=== PATIENT | male | born 1945 | race Caucasian/White ===

== ENCOUNTER 2017-03-12 11:20 | Day surgery (SDC) | payer MEDICARE, BC ==
[~2017-03-12] VITALS: Ht 182.9 cm; Wt 120.7 kg
[~2017-03-12 11:20] MED LIST: ACET500 PO; ALBU90OI INH; ALLEGRA ALLERG180 MG PO; AMLOATOR; AMLOD-VALSA-HC1 EAC4 PO; AMLODIPINE-VAL1 EAC3 PO; ASMANEX110 MC1 INH; ASPI81CH PO; Aspir 8181 MG; Aspir 8181 MG PO; Aspirin EC81 MG PO; BENZ100A PO; CALCA500CH PO; COQ1050 MG PO; CYCL10 PO; Cialis20 MG PO; Curcumin1 GM; DIOVAN; DOXA2; DOXA2 PO; ESCI10 PO; EXFORGE; EZET10 PO; EZET10-20; FEXO180; FEXO60 PO; FEXPSEER PO; FISH1000 PO; HYDACE10B; HYDACE5 PO; HYDCHL25; HYDCHL25 PO; HYDRA25 PO; HYDRO EYE PO; IBUP800 PO; METPRE4DP PO; MOME220I; MOME220I INH; NAPR500; NAPR500 PO; OXYACE5T PO; PANT20 PO; PANT40 PO; PRAV20 PO; PROCODE120 PO; ROXICODONE5 MG PO; SIMV80; SIMV80 PO; TADA10TA; TADA10TA PO; TURMERIC500 MG; TURMERIC500 MG PO; UBID10; UBID100 PO; VALS80
== END 2017-03-12 13:53 | disposition home or self-care (01) ==
LOC: ORSCSDS 11:20
PROVIDERS: Internal Medicine Gastroenterology
PROC: 0DB98ZX Excision of Duodenum, Via Natural or Artificial Opening Endoscopic, Diagnostic (ICD-10-PCS; principal; 2017-03-12 12:30)
PROC: 0DB58ZX Excision of Esophagus, Via Natural or Artificial Opening Endoscopic, Diagnostic (ICD-10-PCS; principal; 2017-03-12 12:30)
PROC: 0DBK8ZX Excision of Ascending Colon, Via Natural or Artificial Opening Endoscopic, Diagnostic (ICD-10-PCS; principal; 2017-03-12 12:30)
PROC: 0DB68ZX Excision of Stomach, Via Natural or Artificial Opening Endoscopic, Diagnostic (ICD-10-PCS; principal; 2017-03-12 12:30)
PROC: 0DBN8ZX Excision of Sigmoid Colon, Via Natural or Artificial Opening Endoscopic, Diagnostic (ICD-10-PCS; principal; 2017-03-12 12:30)
PROC: 0DBE8ZX Excision of Large Intestine, Via Natural or Artificial Opening Endoscopic, Diagnostic (ICD-10-PCS; principal; 2017-03-12 12:30)
DX: K21.9 Gastro-esophageal reflux disease without esophagitis (principal); K29.80 Duodenitis without bleeding; R19.7 Diarrhea, unspecified; D12.5 Benign neoplasm of sigmoid colon; D12.2 Benign neoplasm of ascending colon; K57.30 Diverticulosis of large intestine without perforation or abscess without bleeding; K64.8 Other hemorrhoids; I10 Essential (primary) hypertension; J45.909 Unspecified asthma, uncomplicated; E66.9 Obesity, unspecified; Z68.36 Body mass index [BMI] 36.0-36.9, adult; E78.5 Hyperlipidemia, unspecified; I25.10 Atherosclerotic heart disease of native coronary artery without angina pectoris; G47.33 Obstructive sleep apnea (adult) (pediatric); Z79.82 Long term (current) use of aspirin; Z79.899 Other long term (current) drug therapy; Z87.891 Personal history of nicotine dependence
CPT/HCPCS: 88305; 88342; J2250; J7120

== ENCOUNTER 2018-07-23 05:11 | Emergency (ER) | payer MEDICARE, BC ==
[~2018-07-23] VITALS: Ht 182.9 cm; Wt 122.5 kg
[2018-07-23] MEDS ORDERED: Percocet 5-3251 EACH PO (07:20)
== END 2018-07-23 07:27 | disposition home or self-care (01) ==
LOC: ER 05:11
DX: M62.838 Other muscle spasm (principal); I10 Essential (primary) hypertension; Z87.891 Personal history of nicotine dependence; Z79.899 Other long term (current) drug therapy
CPT/HCPCS: 72040; 96372; 99283-25; J1885

== ENCOUNTER 2019-05-19 09:17 | Observation (INO) | payer MEDICARE ==
[~2019-05-19 09:17] MED LIST changes: +ATOR20 PO; -Curcumin1 GM; -PANT20 PO; -PRAV20 PO; +Percocet 5-3251 EACH PO; +TURMERIC PO
[2019-05-19 10:26] LABS: BASOPHILS ABSOLUTE AUTO 0.05 K/mm3 (0.00-0.23); BASOPHILS PERCENT AUTO 0 % (0-2); EOSINOPHILS ABSOLUTE AUTO 0.32 K/mm3 (0.00-0.68); EOSINOPHILS PERCENT AUTO 3 % (0-6); Hematocrit 47.8 % (37.0-53.0); Hemoglobin 15.4 g/dL (13.5-17.5); IMMATURE GRAN ABSOLUTE AUTO 0.04 K/mm3 (0.00-0.10); IMMATURE GRAN PERCENT AUTO 0 % (0-1); LYMPHOCYTES ABSOLUTE AUTO 2.07 K/mm3 (0.84-5.20); LYMPHOCYTES PERCENT AUTO 16 % (21-46); MONOCYTES ABSOLUTE AUTO 1.28 K/mm3 (0.16-1.47); MONOCYTES PERCENT AUTO 10 % (4-13); Mean Corpuscular HGB 28.7 pg (26.0-34.0); Mean Corpuscular HGB Conc 32.2 g/dL (31.5-36.5); Mean Corpuscular Volume 89 fL (80-100); Mean Platelet Volume 11.4 fL (9.1-12.4); NEUTROPHILS PERCENT AUTO 71 % (41-73); Platelet Count 191 K/mm3 (150-400); Red Blood Cell Count 5.37 M/mm3 (4.30-5.90); White Blood Cell Count 12.86 K/mm3 (4.00-11.30)
[2019-05-19 10:54] LABS: Alanine Aminotransfer (ALT/SGP 30 U/L (12-78); Albumin, Blood 3.5 g/dL (3.4-5.0); Albumin/Globulin Ratio 1.1 (0.8-1.8); Alk Phos 75 U/L (50-136); Anion Gap 5 mmol/L (6-16); Aspartate Aminotrans (AST/SGOT 19 U/L (12-37); Bilirubin, Total 1.5 mg/dL (0.1-1.0); Blood Urea Nitrogen 15 mg/dL (8-24); CO2, Blood 26 mmol/L (21-32); Calcium, Blood 9.1 mg/dL (8.5-10.1); Chloride, Blood 112 mmol/L (98-108); Creatinine, Blood 0.94 mg/dL (0.60-1.20); Globulin, Blood 3.3 g/dL (2.2-4.0); Glomerular Filtration Rate >60 (60-); Glucose, Blood 114 mg/dL (70-99); Sodium, Blood 143 mmol/L (136-145); Total Protein, Blood 6.8 g/dL (6.4-8.2); Troponin I 0.055 ng/mL (0.000-0.040)
[2019-05-19 18:23] LABS: Adenovirus Not Detected (NOT DETECT); Bordetella pertussis Not Detected (NOT DETECT); Chlamydophila pneumoniae Not Detected (NOT DETECT); Coronavirus 229E Not Detected (NOT DETECT); Coronavirus HKU1 Not Detected (NOT DETECT); Coronavirus NL63 Not Detected (NOT DETECT); Coronavirus OC43 Not Detected (NOT DETECT); Human Metapneumovirus Not Detected (NOT DETECT); Human Rhinovirus/Enterovirus Not Detected (NOT DETECT); Influenza A/2009-H1 Not Detected (NOT DETECT); Influenza A/H1 Not Detected (NOT DETECT); Influenza A/H3 Not Detected (NOT DETECT); Influenza A/No Subtype Not Detected (NOT DETECT); Influenza B Not Detected (NOT DETECT); Mycoplasma pneumoniae Not Detected (NOT DETECT); Parainfluenza Virus 1 Not Detected (NOT DETECT); Parainfluenza Virus 2 Not Detected (NOT DETECT); Parainfluenza Virus 3 Not Detected (NOT DETECT); Parainfluenza Virus 4 Not Detected (NOT DETECT); Respiratory Syncytial Virus Not Detected (NOT DETECT)
[2019-05-20] MEDS ORDERED: PROAIR RESPICL90 MCG INH (16:13)
[2019-05-20] MEDS ORDERED: GUAI600T33 PO (16:14)
[2019-05-20] MEDS ORDERED: LEVFLO500 PO (16:15)
[2019-05-20] MEDS ORDERED: Florastor250 MG PO (16:15)
[2019-05-20] MEDS ORDERED: FLUTICASONE-SA1 EAC2 INH (16:16)
[2019-05-20] MEDS ORDERED: Prednisone10 MG PO (16:17)
== END 2019-05-20 16:58 | disposition home or self-care (01) ==
PROVIDERS: Emergency Medicine; Hospitalist
DX: J45.901 Unspecified asthma with (acute) exacerbation (principal); J18.8 Other pneumonia, unspecified organism; R79.89 Other specified abnormal findings of blood chemistry; I25.10 Atherosclerotic heart disease of native coronary artery without angina pectoris; I25.5 Ischemic cardiomyopathy; I10 Essential (primary) hypertension; G47.33 Obstructive sleep apnea (adult) (pediatric); K21.9 Gastro-esophageal reflux disease without esophagitis; E78.5 Hyperlipidemia, unspecified; R73.03 Prediabetes; E66.9 Obesity, unspecified; H91.90 Unspecified hearing loss, unspecified ear; N40.0 Benign prostatic hyperplasia without lower urinary tract symptoms; Z88.1 Allergy status to other antibiotic agents; Z95.1 Presence of aortocoronary bypass graft; Z99.89 Dependence on other enabling machines and devices; Z87.891 Personal history of nicotine dependence; Z88.8 Allergy status to other drugs, medicaments and biological substances; Z79.82 Long term (current) use of aspirin; Z79.899 Other long term (current) drug therapy; E78.00 Pure hypercholesterolemia, unspecified; Z68.36 Body mass index [BMI] 36.0-36.9, adult; Z20.828 Contact with and (suspected) exposure to other viral communicable diseases

== ENCOUNTER 2020-01-20 16:08 | Emergency (ER) | payer OTHER, MEDICARE, BC ==
[~2020-01-20] VITALS: Ht 182.9 cm; Wt 117.9 kg
[~2020-01-20 16:08] MED LIST changes: +FLUTICASONE-SA1 EAC2 INH; +Florastor250 MG PO; +GUAI600T33 PO; +LEVFLO500 PO; +PROAIR RESPICL90 MCG INH; +Prednisone10 MG PO
== END 2020-01-20 17:41 | disposition home or self-care (01) ==
LOC: ER 16:08
DX: M79.642 Pain in left hand (principal); I10 Essential (primary) hypertension; J45.909 Unspecified asthma, uncomplicated; Z88.8 Allergy status to other drugs, medicaments and biological substances; Z88.1 Allergy status to other antibiotic agents; Z79.899 Other long term (current) drug therapy; Z79.82 Long term (current) use of aspirin; Z95.1 Presence of aortocoronary bypass graft; V49.40XA Driver injured in collision with unspecified motor vehicles in traffic accident, initial encounter; Y92.410 Unspecified street and highway as the place of occurrence of the external cause
CPT/HCPCS: 73130; 99284-25

== ENCOUNTER 2020-06-09 09:24 | Emergency (ER) | payer MEDICARE, BC ==
[~2020-06-09] VITALS: Ht 182.9 cm; Wt 117.9 kg
[2020-06-09 09:55] LABS: BASOPHILS ABSOLUTE AUTO 0.05 K/mm3 (0.00-0.23); BASOPHILS PERCENT AUTO 1 % (0-2); EOSINOPHILS ABSOLUTE AUTO 0.35 K/mm3 (0.00-0.68); EOSINOPHILS PERCENT AUTO 3 % (0-6); Hematocrit 46.5 % (37.0-53.0); Hemoglobin 15.4 g/dL (13.5-17.5); IMMATURE GRAN ABSOLUTE AUTO 0.03 K/mm3 (0.00-0.10); IMMATURE GRAN PERCENT AUTO 0 % (0-1); LYMPHOCYTES PERCENT AUTO 21 % (21-46); MONOCYTES ABSOLUTE AUTO 0.87 K/mm3 (0.16-1.47); MONOCYTES PERCENT AUTO 8 % (4-13); Mean Corpuscular HGB 29.4 pg (26.0-34.0); Mean Corpuscular HGB Conc 33.1 g/dL (31.5-36.5); Mean Corpuscular Volume 89 fL (80-100); Mean Platelet Volume 11.4 fL (9.1-12.4); NEUTROPHILS PERCENT AUTO 67 % (41-73); Platelet Count 177 K/mm3 (150-400); RDW Coefficient Variation 12.8 % (11.7-14.2); RDW Standard Deviation 41.9 fL (35.1-46.3); Red Blood Cell Count 5.23 M/mm3 (4.30-5.90)
[2020-06-09 10:24] LABS: Alanine Aminotransfer (ALT/SGP 47 U/L (12-78); Albumin, Blood 3.7 g/dL (3.4-5.0); Albumin/Globulin Ratio 1.1 (0.8-1.8); Alk Phos 65 U/L (50-136); Anion Gap 6 mmol/L (6-16); Aspartate Aminotrans (AST/SGOT 24 U/L (12-37); Bilirubin, Total 1.6 mg/dL (0.1-1.0); Blood Urea Nitrogen 31 mg/dL (8-24); Bun/Creatinine Ratio 25.4 (12.0-20.0); CO2, Blood 25 mmol/L (21-32); Calcium, Blood 9.5 mg/dL (8.5-10.1); Chloride, Blood 110 mmol/L (98-108); Creatinine, Blood 1.22 mg/dL (0.60-1.20); Globulin, Blood 3.4 g/dL (2.2-4.0); Glomerular Filtration Rate >60 (60-); Glucose, Blood 131 mg/dL (70-99); Sodium, Blood 141 mmol/L (136-145); Total Protein, Blood 7.1 g/dL (6.4-8.2)
== END 2020-06-09 14:24 | disposition home or self-care (01) ==
LOC: ER 09:24
PROVIDERS: Emergency Medicine
DX: R07.9 Chest pain, unspecified (principal); I10 Essential (primary) hypertension; Z79.82 Long term (current) use of aspirin; Z87.891 Personal history of nicotine dependence; J45.909 Unspecified asthma, uncomplicated; Z88.8 Allergy status to other drugs, medicaments and biological substances; Z88.1 Allergy status to other antibiotic agents; Z79.899 Other long term (current) drug therapy
CPT/HCPCS: 36415; 71046; 80053; 83690; 84484; 85025; 93005; 93010; 99285-25

== ENCOUNTER 2021-07-21 16:49 | Emergency (ER) | payer MEDICARE ==
[~2021-07-21] VITALS: Ht 182.9 cm; Wt 117.9 kg
[2021-07-21 17:29] LABS: BASOPHILS ABSOLUTE AUTO 0.05 K/mm3 (0.00-0.23); BASOPHILS PERCENT AUTO 0 % (0-2); EOSINOPHILS ABSOLUTE AUTO 0.28 K/mm3 (0.00-0.68); EOSINOPHILS PERCENT AUTO 2 % (0-6); Hematocrit 49.1 % (37.0-53.0); Hemoglobin 16.1 g/dL (13.5-17.5); IMMATURE GRAN ABSOLUTE AUTO 0.04 K/mm3 (0.00-0.10); IMMATURE GRAN PERCENT AUTO 0 % (0-1); LYMPHOCYTES PERCENT AUTO 19 % (21-46); MONOCYTES ABSOLUTE AUTO 1.32 K/mm3 (0.16-1.47); MONOCYTES PERCENT AUTO 11 % (4-13); Mean Corpuscular HGB 29.3 pg (26.0-34.0); Mean Corpuscular HGB Conc 32.8 g/dL (31.5-36.5); Mean Corpuscular Volume 89 fL (80-100); Mean Platelet Volume 11.8 fL (9.1-12.4); NEUTROPHILS ABSOLUTE AUTO 8.03 K/mm3 (1.96-9.15); NEUTROPHILS PERCENT AUTO 67 % (41-73); Platelet Count 186 K/mm3 (150-400); RDW Coefficient Variation 12.7 % (11.7-14.2); RDW Standard Deviation 41.4 fL (35.1-46.3); White Blood Cell Count 12.02 K/mm3 (4.00-11.30)
[2021-07-21 17:45] LABS: Albumin, Blood 3.8 g/dL (3.4-5.0); Albumin/Globulin Ratio 1.1 (0.8-1.8); Bilirubin, Total 1.5 mg/dL (0.1-1.0); Bun/Creatinine Ratio 18.3 (12.0-20.0); Calcium, Blood 9.6 mg/dL (8.5-10.1); Creatinine, Blood 0.98 mg/dL (0.60-1.20); Globulin, Blood 3.4 g/dL (2.2-4.0); Potassium, Blood 3.9 mmol/L (3.5-5.5); Total Protein, Blood 7.2 g/dL (6.4-8.2)
[2021-07-21] MEDS ORDERED: AMOCLA875 PO (21:47)
== END 2021-07-21 23:04 | disposition home or self-care (01) ==
LOC: ER 16:49
PROVIDERS: Physician Assistant
DX: K57.92 Diverticulitis of intestine, part unspecified, without perforation or abscess without bleeding (principal); D72.829 Elevated white blood cell count, unspecified; I10 Essential (primary) hypertension; J45.909 Unspecified asthma, uncomplicated
CPT/HCPCS: 36415; 74176; 80053; 83690; 85025; A9270

== ENCOUNTER 2021-09-05 07:38 | Emergency (ER) | payer MEDICARE ==
[~2021-09-05] VITALS: Ht 182.9 cm; Wt 117.9 kg
[~2021-09-05 07:38] MED LIST changes: +AMOCLA875 PO
[2021-09-05 08:57] LABS: Influenza A, PCR NEGATIVE (NEGATIVE); Influenza B, PCR NEGATIVE (NEGATIVE); Resp Syncytial Virus, PCR NEGATIVE (NEGATIVE)
[2021-09-05 09:08] LABS: SARS-Cov-2 (COVID-19) PCR, MMC POSITIVE (NEGATIVE)
== END 2021-09-05 09:40 | disposition home or self-care (01) ==
LOC: ER 07:38
PROVIDERS: Emergency Medicine
DX: U07.1 COVID-19 (principal); I10 Essential (primary) hypertension; J45.909 Unspecified asthma, uncomplicated; Z88.8 Allergy status to other drugs, medicaments and biological substances; Z88.1 Allergy status to other antibiotic agents; Z79.899 Other long term (current) drug therapy
CPT/HCPCS: 0241U; 71045

== ENCOUNTER → 2022-01-27 | Outpatient (CLI) | payer MEDICARE | END | disposition home or self-care (01) | DX: R06.00 Dyspnea, unspecified (principal); R07.9 Chest pain, unspecified ==

== ENCOUNTER → 2022-02-27 | Outpatient (CLI) | payer MEDICARE, OTHER | END | disposition home or self-care (01) | LOC: LAB SHORT 07:35 | DX: B35.1 Tinea unguium (principal) | CPT/HCPCS: 88305; 88312 ==

== ENCOUNTER → 2022-09-22 | Outpatient (CLI) | payer MEDICARE | LOC: LAB SHORT 14:00 → LAB 14:00 | DX: M79.674 Pain in right toe(s) (principal) | CPT/HCPCS: 84550 ==

== ENCOUNTER 2023-07-06 16:26 | Emergency (ER) | payer MEDICARE ==
[~2023-07-06] VITALS: Ht 182.9 cm; Wt 117.0 kg
[2023-07-06 16:50] LABS: BASOPHILS ABSOLUTE AUTO 0.04 K/mm3 (0.00-0.23); BASOPHILS PERCENT AUTO 0 % (0-2); EOSINOPHILS PERCENT AUTO 1 % (0-6); Hematocrit 45.1 % (37.0-53.0); Hemoglobin 14.9 g/dL (13.5-17.5); IMMATURE GRAN ABSOLUTE AUTO 0.06 K/mm3 (0.00-0.10); IMMATURE GRAN PERCENT AUTO 0 % (0-1); LYMPHOCYTES ABSOLUTE AUTO 2.31 K/mm3 (0.84-5.20); LYMPHOCYTES PERCENT AUTO 15 % (21-46); MONOCYTES ABSOLUTE AUTO 1.97 K/mm3 (0.16-1.47); MONOCYTES PERCENT AUTO 13 % (4-13); Mean Corpuscular HGB 29.3 pg (26.0-34.0); Mean Corpuscular Volume 89 fL (80-100); Mean Platelet Volume 11.1 fL (9.1-12.4); NEUTROPHILS ABSOLUTE AUTO 10.72 K/mm3 (1.96-9.15); NEUTROPHILS PERCENT AUTO 70 % (41-73); Platelet Count 208 K/mm3 (150-400); RDW Coefficient Variation 13.1 % (11.7-14.2); RDW Standard Deviation 42.7 fL (35.1-46.3); Red Blood Cell Count 5.08 M/mm3 (4.30-5.90)
[2023-07-06 17:07] LABS: Albumin, Blood 3.6 g/dL (3.4-5.0); Albumin/Globulin Ratio 1.1 (0.8-1.8); Bilirubin, Total 1.3 mg/dL (0.1-1.0); Bun/Creatinine Ratio 17.3 (12.0-20.0); Calcium, Blood 9.4 mg/dL (8.5-10.1); Creatinine, Blood 1.04 mg/dL (0.60-1.20); Globulin, Blood 3.2 g/dL (2.2-4.0); Potassium, Blood 3.7 mmol/L (3.5-5.5); Total Protein, Blood 6.8 g/dL (6.4-8.2)
[2023-07-06] MEDS ORDERED: ALBU2.5V5 INH (17:14)
[2023-07-06] MEDS ORDERED: AZELASTINE137 MCG/01 (17:14)
[2023-07-06] MEDS ORDERED: COLCHICINE0.6 MG PO (17:15)
[2023-07-06] MEDS ORDERED: Voltaren100 GM (17:15)
[2023-07-06] MEDS ORDERED: ARNUITY ELLIP100 MCG (17:16)
[2023-07-06] MEDS ORDERED: MONT10T PO (17:16)
[2023-07-06] MEDS ORDERED: GABA300 PO (17:16)
[2023-07-06] MEDS ORDERED: Orphenadrine C100 MG (17:17)
[2023-07-06] MEDS ORDERED: HYDR1TAB94 PO (17:17)
[2023-07-06] MEDS ORDERED: NYSTRIT (17:17)
[2023-07-06] MEDS ORDERED: SPIR25 PO (17:18)
[2023-07-06] MEDS ORDERED: TADA10TA PO (17:18)
[2023-07-06] MEDS ORDERED: Clotrimazole-Be15 GM (17:19)
[2023-07-06] MEDS ORDERED: BREO ELLIPTA 11 EAC1 (17:21)
[2023-07-06] MEDS ORDERED: FLUTICASONE-VI1 EACH (17:21)
[2023-07-06] MEDS ORDERED: Ondansetron HCl 2 MG / ML 2ML Vial IV ONE (19:05)
[2023-07-06] MEDS ORDERED: Dexamethasone Sod Phos 10 MG/ML 1ML VIAL IV ONE (19:05)
[2023-07-06] MEDS ORDERED: Methocarbamol 500 MG Tab PO ONE (19:05)
[2023-07-06] MEDS ORDERED: Morphine Sulfate 4 MG/1 ML Injection IV ONE (19:05)
[2023-07-06] MEDS ORDERED: OxyCODONE 5 mg/Acetamin 325 mg TABLET PO ONE (20:20)
[2023-07-06] MEDS ORDERED: RX Prepack 6 Tabs Oxycodone 5mg UD ONE (20:20)
[2023-07-06] MEDS ORDERED: Robaxin750 MG PO (20:22)
[2023-07-06] MEDS ORDERED: METPRE4DP PO (20:22)
[2023-07-06 21:00] VITALS: BP 161/80
== END 2023-07-06 21:25 | disposition home or self-care (01) ==
LOC: ER 16:26
PROVIDERS: Emergency Medicine
DX: M54.12 Radiculopathy, cervical region (principal); M25.551 Pain in right hip; Z88.8 Allergy status to other drugs, medicaments and biological substances; Z79.899 Other long term (current) drug therapy; Z79.82 Long term (current) use of aspirin; I10 Essential (primary) hypertension; J45.909 Unspecified asthma, uncomplicated
CPT/HCPCS: 71046; 73502; 80053; 84484; 85025; 93005; 93010; 96374; 99284-25; A9270; J1100

== ENCOUNTER 2024-05-31 07:18 | Day surgery (SDC) | payer OTHER ==
[~2024-05-31] VITALS: Ht 182.9 cm; Wt 117.0 kg
[2024-05-31] VITALS (11 sets, daily range): BP systolic 102–153; BP diastolic 18–94
[~2024-05-31 07:18] MED LIST changes: +ALBU2.5V5 INH; +ARNUITY ELLIP100 MCG; +AZELASTINE137 MCG/01; +BREO ELLIPTA 11 EAC1; +BREO ELLIPTA 11 EAC1 INH; +Bisoprolol Fumar5 MG PO; +COENZYME Q10100 MG PO; +COLCHICINE0.6 MG PO; +Clotrimazole-Be15 GM; +FLUTICASONE-VI1 EACH; +GABA300 PO; +HYDR1TAB94 PO; +MONT10T PO; +NYSTRIT; +Orphenadrine C100 MG; +Robaxin750 MG PO; +SILD50TA PO; +SPIR25 PO; +TERB250 PO; +VARDENAFIL HCL10 M1 PO; +Voltaren100 GM
[2024-05-31] MEDS ORDERED: Verapamil HCL 2.5 MG/ML 2ML Injection ONE (07:57)
[2024-05-31] MEDS ORDERED: NS 1,000 ML IV ONE ×2 (07:58→08:09)
[2024-05-31] MEDS ORDERED: Heparin Sodium 1000 Units/ML 10ML MDV ONE ×2 (07:58→08:43)
[2024-05-31] MEDS ORDERED: NS 250 ML IV ONE (07:58)
[2024-05-31] MEDS ORDERED: Nitroglycerin 2 MG/20 ML BTL ONE (07:59)
[2024-05-31] MEDS ORDERED: FentaNYL Citrate 50 MCG/ML 2 ML Injection ONE (08:08)
[2024-05-31] MEDS ORDERED: Midazolam HCl 1MG / ML 2ML Vial ONE (08:08)
[2024-05-31] MEDS ORDERED: Aspirin 325 MG Tab ONE (08:18)
[2024-05-31] MEDS ORDERED: Atropine Sulfate 0.1 MG/ML 10ML SYR ONE (08:45)
--- NOTE | 2024-05-31 09:32 | NUR ---
PT RETURNED TO RECOVERY ROOM IN BED. RIGHT FEMORAL GROIN SITE SOFT NON-TENDER WITH NO HEMATOMA, NO PULSATILE BLEEDING AND INTACT DRESSING. R DP PULSE 2. PT DENIES CHEST PAIN. CALL LIGHT IN REACH..
--- NOTE | 2024-05-31 09:59 | NUR ---
NO CHANGES TO R FEM GROIN SITE. R DP PULSE STILL 2.
--- NOTE | 2024-05-31 10:10 | NUR ---
HOB UP TO 30 DEGREES; NO CHANGES TO R FEM GROIN SITE.
--- NOTE | 2024-05-31 10:20 | NUR ---
NO CHANGES TO R FEM GROIN SITE; R DP PULSE STILL 2. PT EATING BREAKFAST AND DRINKING COFFEE.
--- NOTE | 2024-05-31 10:45 | NUR ---
NO CHANGES TO R FEM GROIN SITE; R DP STILL 2. HOB UP TO 45 DEGREES.
--- NOTE | 2024-05-31 10:52 | NUR ---
DR MISHRA IN ROOM TO SEE PT.
--- NOTE | 2024-05-31 12:34 | NUR ---
NO CHANGES TO R FEM GROIN SITE; STILL SOFT NON-TENDER WITH NO HEMATOMA, NO PULSATILE BLEEDING AND INTACT DRESSING. R DP PULSE STILL 2. DISCHARGE INSTRUCTIONS REVIEWED ALL QUESTIONS ANSWERED. 20 G IV DISCONTINUED FROM R AC WITH INTACT DRESSING PT ESCORTED OUT VIA WHEELCHAIR ESCORT.
== END 2024-05-31 12:35 | disposition home or self-care (01) ==
LOC: MHTC 07:18
DX: I25.10 Atherosclerotic heart disease of native coronary artery without angina pectoris (principal); I25.5 Ischemic cardiomyopathy; I77.810 Thoracic aortic ectasia; I10 Essential (primary) hypertension; E78.5 Hyperlipidemia, unspecified; J45.909 Unspecified asthma, uncomplicated; G47.33 Obstructive sleep apnea (adult) (pediatric); F17.200 Nicotine dependence, unspecified, uncomplicated; E66.01 Morbid (severe) obesity due to excess calories; R94.39 Abnormal result of other cardiovascular function study; R06.02 Shortness of breath; Z68.34 Body mass index [BMI] 34.0-34.9, adult; Z95.1 Presence of aortocoronary bypass graft; Z88.1 Allergy status to other antibiotic agents; Z88.8 Allergy status to other drugs, medicaments and biological substances; Z79.899 Other long term (current) drug therapy
CPT/HCPCS: 36415; 76937; 80048; 85007; 85027; 85610; 93459; 99152; 99153; A9270; C1760; C1769; C1894; J0461; J1644; J2250; J3010; J7030; J7050; Q9967